=== PATIENT | male | born 1990 ===

== ENCOUNTER → 2021-05-13 10:36 | Outpatient (CLI) | payer BC, SELFPAY ==
[2021-05-13] MEDS: Normal Saline Flush 10 ML SYR IVP (13:13)
[2021-05-13] MEDS: Gadoterate meglumine 20 ML VIAL IVP (13:14)
--- NOTE | 2021-05-13 13:45 | DI.MRI_ITS ---
Exam(s) MR BRAIN WO/W EXAM: MR BRAIN WO/W CLINICAL HISTORY: INTRUSIVE THOUGHTS, R41.89 TECHNIQUE: Multiplanar multisequence MRI of the brain was performed. Additional post contrast T1 an d MP rage multiplanar images were also obtained. COMPARISON: No exams were available for comparison FINDINGS: The ventricular system is normal in appearance. No signal abnormality identified in the brain. The orbital and temporal bone structures appear intact as does the pituitary. Diffusion weighted imaging shows no evidence of infarction. Susceptibility weighted imaging shows no evidence of intracranial hemorrhage. There is normal flow void in the [place] vasculature. There is no mass lesion or enhancing lesion identified. IMPRESSION: Normal brain MRI DATA REPOSITORY:
== END ==
PROVIDERS: PCP Family Medicine; Visit Provider Physician Assistant Medical
DX: R41.89 Other symptoms and signs involving cognitive functions and awareness (principal)
CPT/HCPCS: 70553